=== PATIENT | female | born 1985 | race Caucasian/White ===

== ENCOUNTER 2021-11-09 08:25 | Emergency (ER) | payer MEDICAID, SELFPAY ==
[2021-11-09 08:38] VITALS: BP 131/84; PULSE 100; RESP 20; TEMP 36.8; O2SAT 100
--- NOTE | 2021-11-09 08:54 | ED.URI ---
HPI - URI/Sore Throat General Chief Complaint: Upper Respiratory Infection Stated Complaint: Cough/Fever/Sore Throat Source: patient Mode of arrival: ambulatory Limitations: no limitations History of Present Illness HPI Narrative: 35-year-old female presents to [facility] with complaints of sore throat, chills, fevers, body aches and cough for the past 4 days. Patient reports that she was recently placed to Covid by her parents. Patient is not COVID or influenza vaccinated. Patient denies nausea, vomiting, diarrhea, shortness breath or wheezing. Patient has been taking [id number] ibuprofen with some relief. MD elicited complaint: cough, sore throat and nasal congestion Onset (ago): day(s) (4) Able to tolerate fluids by mouth: Yes Exacerbating factors: nothing Relieving factors: nothing Context: sick contacts Associated symptoms: chills and cough Treatments prior to arrival: none Related Data Home Medications Medication Instructions Recorded Confirmed buspirone 15 mg PO DAILY 11/09/21 11/09/21 quetiapine 50 mg PO HS 11/09/21 11/09/21 Allergies Allergy/AdvReac Type Severity Reaction Status Date / Time No Known Allergies Allergy Unknown Verified 11/09/21 08:43 Review of Systems Constitutional: Constitutional: Reports chills, Denies fatigue, Reports fever(s) and Denies weakness ENT: Reports sore throat Cardiovascular: Cardiovascular: Denies chest pain, Denies rapid heart rate and Denies radiating jaw, neck or arm pain Respiratory: Respiratory: Denies chest congestion, Reports cough, Denies dyspnea and Denies wheezing Gastrointestinal: Gastrointestinal: Denies constipation, Denies diarrhea, Denies nausea and Denies vomiting [facility] Past Medical History Medical History (Updated 11/09/21 @ 09:26 by Mindy Overton APRN) Encounter for gastric sleeve procedure Social History Social History (Updated 11/09/21 @ 08:57 by Mindy Overton APRN) Smoking status: Never smoker Comments At time of signature, I agree with nursing past medical, surgical, social and family history. There is no relevant family history pertinent to the presenting complaint. Exam Const: General: healthy appearing, no acute distress and alert Orientation/consciousness: patient oriented x3 HENMT: Ears: external ears normal and EAC's normal General nose exam: Normal nares present Mouth: Yes lip normal and Yes moist mucous membranes Teeth and gingiva: dentition normal Throat: uvula midline Other: Mild erythema noted to posterior pharynx Neck: Neck: normal visual inspection Resp: Effort & Inspection: normal respiratory effort Auscultation: clear to auscultation bilaterally Cardio: Rate: regular rate Rhythm: regular rhythm Skin: General skin exam: normal color Rashes: no rashes Neuro: General: patient oriented x3, moves all extremities and no meningeal signs Psych: Affect: normal affect Attitude: cooperative Course Vital Signs Vital signs: Vital Signs Temperature 36.8 C 11/09/21 08:38 Pulse Rate 100 11/09/21 08:38 Respiratory Rate 20 11/09/21 08:38 Blood Pressure 131/84 11/09/21 08:38 Pulse Oximetry 100 11/09/21 08:38 Temperature 36.8 C 11/09/21 08:38 Pulse Rate 100 11/09/21 08:38 Respiratory Rate 20 11/09/21 08:38 Blood Pressure 131/84 11/09/21 08:38 Pulse Oximetry 100 11/09/21 08:38 MDM - URI/Sore Throat Lab Data Lab results narrative: Negative rapid COVID Labs: Influenza A Screen Negative Reference Range: Negative Influenza B Screen Negative Reference Range: Negative Strep Screen Presumptive Negative *(Reference Range: Negative)* Critical Care Time Critical Care Time Critical Care Time: No Discharge Plan Discharge Clinical Impression: Viral infection Patient Disposition: [facility]
== END 2021-11-09 09:34 | disposition home or self-care (01) ==
PROVIDERS: Emergency Provider Nurse Practitioner Family
DX: B34.9 Viral infection, unspecified (principal); Z20.822 Contact with and (suspected) exposure to COVID-19; Z98.84 Bariatric surgery status
CPT/HCPCS: 87081; 87426; 87804; 87880; 99203; C9803; G0463

== ENCOUNTER 2023-02-04 08:04 | Emergency (ER) | payer OTHER, MEDICAID, SELFPAY ==
[2023-02-04 08:12] VITALS: BP 114/81; PULSE 78; RESP 20; TEMP 36.7; O2SAT 98
--- NOTE | 2023-02-04 08:35 | ED.URI ---
HPI - URI/Sore Throat General Chief Complaint: Upper Respiratory Infection Stated Complaint: cold/flu Time Seen by Provider: 02/04/23 08:35 History of Present Illness HPI Narrative: Patient here with a sore throat. Patient states her symptoms just started yesterday but she was exposed to strep throat. No trouble swallowing no drooling. Related Data Allergies Allergy/AdvReac Type Severity Reaction Status Date / Time No Known Allergies Allergy Unknown Verified 02/04/23 08:24 Review of Systems Review of Systems: CONSTITUTIONAL: Denies chills, or sweats. Reports fever and generalized body aches EYES: Denies visual changes, redness, or discharge. ENT: Denies otalgia. Reports nasal congestion runny nose and sore throat CARDIOVASCULAR: Denies chest pain, palpitations, or edema. RESPIRATORY: Denies dyspnea. Reports occasional cough GASTROINTESTINAL: Denies abdominal pain, nausea, vomiting, or diarrhea. GENITOURINARY: Denies dysuria or hematuria. SKIN: Denies rash or itching. MUSCULOSKELETAL: Denies back pain, joint pain, or myalgia. Reports generalized body aches NEUROLOGIC: Denies headache, numbness, or weakness. PSYCHIATRIC: Denies anxiety or depression. [facility] Past Medical History Medical History (Updated 02/04/23 @ 08:58 by DEBI Wilder) Encounter for gastric sleeve procedure Social History Social History (Updated 11/09/21 @ 08:57 by Mindy Overton APRN) Smoking status: Never smoker Comments At time of signature, agree with nursing past medical, surgical, social and family history. There is no relevant family history pertinent to the presenting complaint Exam Narrative: CONSTITUTIONAL: Denies chills, or sweats. Reports fever and generalized body aches EYES: Denies visual changes, redness, or discharge. ENT: Denies otalgia. Reports nasal congestion runny nose and sore throat CARDIOVASCULAR: Denies chest pain, palpitations, or edema. RESPIRATORY: Denies dyspnea. Reports occasional cough GASTROINTESTINAL: Denies abdominal pain, nausea, vomiting, or diarrhea. GENITOURINARY: Denies dysuria or hematuria. SKIN: Denies rash or itching. MUSCULOSKELETAL: Denies back pain, joint pain, or myalgia. Reports generalized body aches NEUROLOGIC: Denies headache, numbness, or weakness. PSYCHIATRIC: Denies anxiety or depression. Course Course Level of Care: Express Care Visit Vital Signs Vital signs: Vital Signs Temperature 36.7 C 02/04/23 08:12 Pulse Rate 78 02/04/23 08:12 Respiratory Rate 20 02/04/23 08:12 Blood Pressure 114/81 02/04/23 08:12 Pulse Oximetry 98 02/04/23 08:12 Oxygen Delivery Room Air 02/04/23 08:12 Temperature 36.7 C 02/04/23 08:12 Pulse Rate 78 02/04/23 08:12 Respiratory Rate 20 02/04/23 08:12 Blood Pressure 114/81 02/04/23 08:12 Pulse Oximetry 98 02/04/23 08:12 Oxygen Delivery Room Air 02/04/23 08:12 Discussed with patient to monitor symptoms if symptoms do not improve in 2-3 days return and B swab for influenza and/or COVID. Discussed since her symptoms just started it would not be an accurate swab to test for COVID influenza at this time. MDM - URI/Sore Throat Differential Diagnosis Differential diagnosis: Likely upper respiratory infection, croup, otitis media, sinusitis, viral infection, bronchitis, influenza and pharyngitis Lab Data Attestation: I reviewed the patient's lab results. Labs: Strep Screen Positive Group A Strep *(Reference Range: Negative)* Discharge Plan Discharge Clinical Impression: Pharyngitis, Strep pharyngitis Patient Disposition: Home, Self-Care Condition: Stable Instructions: Pharyngitis (ED), Strep Throat (DC) Additional Instructions: increase fluids especially juices and water [id number] cough and cold medicine of your choice for your symptoms Salt water gargles, throat lozenges or throat sprays as desired change toothbrush in 3-5 day
== END 2023-02-04 08:58 | disposition home or self-care (01) ==
PROVIDERS: Emergency Provider Nurse Practitioner Family
DX: J02.0 Streptococcal pharyngitis (principal); Z98.84 Bariatric surgery status
CPT/HCPCS: 87880; 99213; G0463

== ENCOUNTER 2023-03-03 10:15 | Emergency (ER) | payer OTHER, MEDICAID, SELFPAY ==
[2023-03-03 10:30] VITALS: BP 135/85; PULSE 67; RESP 18; TEMP 37.3; O2SAT 99
--- NOTE | 2023-03-03 10:51 | ED.URI ---
HPI - URI/Sore Throat General Chief Complaint: Upper Respiratory Infection Stated Complaint: strep test Time Seen by Provider: 03/03/23 10:51 History of Present Illness HPI Narrative: 37-year-old female presented for complaint of sore throat since last night. Endorses sick family members with similar symptoms. Patient had strep on 02/04/2023 completed her course of antibiotics. She has not taken anything for symptoms at this time. She denies associated cough, shortness of breath, wheezing, nausea, vomiting, diarrhea, fevers or chills. Related Data Allergies Allergy/AdvReac Type Severity Reaction Status Date / Time No Known Allergies Allergy Unknown Verified 03/03/23 10:52 Review of Systems Review of Systems: CONSTITUTIONAL: Denies body aches, fever, chills, or sweats. EYES: Denies visual changes, redness, or discharge. ENT: Denies rhinorrhea, congestion, or otalgia. CARDIOVASCULAR: Denies chest pain, palpitations, or edema. RESPIRATORY: Denies dyspnea. GASTROINTESTINAL: Denies abdominal pain, nausea, vomiting, or diarrhea. SKIN: Denies rash, itching, or wounds. MUSCULOSKELETAL: Denies back pain, joint pain, or myalgia. NEUROLOGIC: Denies headache PMFSH Past Medical History Medical History Encounter for gastric sleeve procedure Social History Social History Smoking status: Never smoker Exam Narrative: GENERAL: well-appearing, no acute distress. EYES: conjunctivae clear ENT: Mucous membranes moist. TMs pearly mustafa with normal light reflex bilaterally; no tragal tenderness. Oropharynx erythematous without lesions , exudate, or tonsillar swelling. No drooling, no hoarseness, no trismus, uvula midline. No tripod positioning, hot potato voice, or soft palate swelling. NECK: Supple. No lymphadenopathy CHEST: Clear to auscultation, breath sounds equal. No respiratory distress, speaks in full sentences. HEART: Regular rate and rhythm. No murmur heard. SKIN: Warm, dry, no rash. NEURO: Alert and oriented x3. Course Course Emergency Course: Patient is aware of diagnosis, understands and agrees to treatment plan. Anticipatory guidance given. Patient agrees to follow-up as directed and is aware of reasons to seek care at the emergency department. Portions of this record may have been created with voice recognition software Level of Care: Express Care Visit Vital Signs Vital signs: Vital Signs Temperature 99.2 F 03/03/23 10:30 Pulse Rate 67 03/03/23 10:30 Respiratory Rate 18 03/03/23 10:30 Blood Pressure 135/85 03/03/23 10:30 Pulse Oximetry 99 03/03/23 10:30 Oxygen Delivery Room Air 03/03/23 10:30 Temperature 99.2 F 03/03/23 10:30 Pulse Rate 67 03/03/23 10:30 Respiratory Rate 18 03/03/23 10:30 Blood Pressure 135/85 03/03/23 10:30 Pulse Oximetry 99 03/03/23 10:30 Oxygen Delivery Room Air 03/03/23 10:30 MDM - URI/Sore Throat MDM Narrative Medical decision making narrative: strep result reviewed with pt. patient's daughter tested positive for strep at this time, will send antibiotics due to known exposure. Advise supportive treatments. Patient is appropriate for outpatient treatment and follow-up. Differential Diagnosis Differential diagnosis: Likely upper respiratory infection, viral infection and pharyngitis Lab Data Labs: Strep Screen Presumptive Negative *(Reference Range: Negative)* Discharge Plan Discharge Clinical Impression: Pharyngitis Qualifiers: Pharyngitis/tonsillitis etiology: unspecified etiology Qualified Code(s): J02.9 - Acute pharyngitis, unspecified Patient Disposition: Home, Self-Care Condition: Stable Instructions: Antibiotic Form, Pharyngitis (ED) Additional Instructions: - Take the antibiotic as directed. Fever and sore throat typically reso
== END 2023-03-03 11:07 | disposition home or self-care (01) ==
PROVIDERS: Emergency Provider Nurse Practitioner Family
DX: J02.9 Acute pharyngitis, unspecified (principal)
CPT/HCPCS: 87081; 87880; 99213; G0463

== ENCOUNTER 2024-01-22 10:29 | Emergency (ER) | payer OTHER, SELFPAY ==
[2024-01-22 10:38] VITALS: BP 155/83; PULSE 129; RESP 20; TEMP 38.3; O2SAT 100
--- NOTE | 2024-01-22 10:46 | ED.GENADULT ---
HPI - General Adult General Chief complaint: Upper Respiratory Infection Stated complaint: Fever/Sore Throat/Body Aches Source: patient, RN notes reviewed and old records reviewed Mode of arrival: ambulatory Limitations: no limitations History of Present Illness HPI narrative: 38-year-old female presents to [facility] with complaints of cough, congestion, sore throat, myalgia, fever, chills this started this a.m.. Patient states has been exposed to strep and COVID. Related Data Allergies Allergy/AdvReac Type Severity Reaction Status Date / Time No Known Allergies Allergy Unknown Verified 03/03/23 10:52 Review of Systems Constitutional: Constitutional: Reports no additional constitutional complaints, Reports body ache(s), Reports chills, Denies fatigue, Reports fever(s) and Denies headache(s) Eyes: Eyes: Reports no additional eye complaints and Denies blurry vision ENT: Reports system reviewed and no additional complaints, except as documented, Denies vertigo, Denies dizziness, Denies ear discharge, Denies otalgia, Denies facial pain, Denies headache(s), Denies nasal congestion, Reports nasal discharge, Denies sinus pain, Denies sinus pressure and Reports sore throat Cardiovascular: Cardiovascular: Reports no additional cardiovascular complaints, Denies chest pain, Denies chest pain at rest, Denies rapid heart rate and Denies dyspnea Respiratory: Respiratory: Reports no additional respiratory complaints, Denies chest congestion, Reports cough, Denies pain on inspiration, Denies pain with cough and Denies dyspnea Gastrointestinal: Gastrointestinal: Denies abdominal pain, Denies diarrhea, Denies nausea and Denies vomiting Integumentary/Breasts: Skin/Breast: Denies rash Neurologic: Reports system reviewed and no additional complaints, except as documented, Denies vertigo, Denies dizziness and Denies headache(s) Endocrine: Endocrine: Denies fatigue PMF Past Medical History Medical History Encounter for gastric sleeve procedure Social History Social History Smoking status: Never smoker Comments At the time of my signature, I reviewed and agree with the nursing past medical, surgical, social, and family history. There is no relevant family history pertinent to the patient complaint. Exam Const: General: cooperative, healthy appearing, no acute distress and well nourished Nutritional Appearance: well nourished Orientation/consciousness: patient oriented x3 Limitations: no limitations HENMT: Head: normal to inspection and normocephalic Ears: external ears normal, TM's normal bilaterally, EAC's normal and mastoids normal Face/Nose/Sinus: normal facial exam Face and sinus: normal facial exam Mouth: Yes Normal oral and palatal mucosa present, Yes oropharynx normal and Yes moist mucous membranes Throat: posterior oropharynx normal, tonsils normal, uvula midline, abnormal tonsil, no peritonsillar masses, normal posterior oropharynx, postnasal drainage and no uvular edema Eyes: General: appearance normal, both eyes and all related structures Sclera: sclerae normal Pupils: Equal, round and reactive pupils present Resp: Effort & Inspection: normal respiratory effort, able to speak in complete sentences, no audible wheezes, no cough, no respiratory distress and no retractions Auscultation: clear to auscultation bilaterally, no crackles, no rales, no rhonchi and no wheezes Cardio: Rate: regular rate Rhythm: regular rhythm Skin: General skin exam: normal color and no rashes or lesions noted Neuro: General: patient oriented x3 Cranial nerves: Yes Equal, round and reactive pupils present Psych: Appearance: grossly normal Mental Status: mental status grossly normal Speech and movement: Normal speech and movement present Affect: normal affect Course Course Emergency Course: Patient is aware of diagnosis, under
== END 2024-01-22 11:09 | disposition home or self-care (01) ==
PROVIDERS: Emergency Provider Registered Nurse
DX: B34.9 Viral infection, unspecified (principal); Z20.822 Contact with and (suspected) exposure to COVID-19
CPT/HCPCS: 87081; 87426; 87804; 87880; 99213; G0463

== ENCOUNTER 2024-03-04 08:14 | Emergency (ER) | payer OTHER, SELFPAY ==
[2024-03-04 08:22] VITALS: BP 130/89; PULSE 71; RESP 20; TEMP 36.9; O2SAT 100
--- NOTE | 2024-03-04 08:26 | ED.FEMALEGU ---
HPI - Female Genitourinary General Chief complaint: Urogenital-Female Stated complaint: Urinary Problem Time Seen by Provider: 03/04/24 08:36 Source: patient, RN notes reviewed and old records reviewed Mode of arrival: ambulatory Limitations: no limitations History of Present Illness HPI Narrative: 38 year old female who presents to [facility] care with complaints of 2 to 3 day history of urinary urgency, frequency denies burning with urination. Reports that she has no suprapubic or any CVA. tenderness, denies any fever, nausea or vomiting. Patient reports no vaginal discharge, states no concern for STD exposure. MD elicited complaint: UTI Onset (ago): day(s) (3) Vaginal discharge: none Vaginal bleeding: none Treatment prior to arrival: none Related Data Allergies Allergy/AdvReac Type Severity Reaction Status Date / Time No Known Allergies Allergy Unknown Verified 03/03/23 10:52 Review of Systems Review of Systems: CONSTITUTIONAL: Denies fever, chills, or sweats. CARDIOVASCULAR: Denies chest pain, palpitations, or edema. RESPIRATORY: Denies cough or dyspnea. GASTROINTESTINAL: Denies abdominal pain, nausea, vomiting, or diarrhea. GENITOURINARY: Reports no dysuria,positive for frequency, urgency. Denies flank pain or hematuria. SKIN: Denies rash or itching. MUSCULOSKELETAL: Denies back pain or myalgia. Denies CVA tenderness NEUROLOGIC: Denies headache All systems reviewed & are unremarkable except as noted in HPI and below PMFSH Past Medical History Medical History Encounter for gastric sleeve procedure Surgical History Surgical History History of dilatation and curettage History of tonsillectomy and adenoidectomy Social History Social History Smoking status: Never smoker Alcohol intake: never Substance use: never Living arrangements: with family Gender identity (if verbalized by the patient): Female Comments At time of signature, agree with nursing past medical, surgical, social and family history. There is no relevant family history pertinent to the presenting complaint Exam Narrative: GENERAL: Well-appearing, well-nourished, and in no acute distress. HEAD: Normocephalic, atraumatic. NECK: Supple. no lymphadenopathy CHEST: Clear to auscultation. No respiratory distress. SAO2 100% on room air HEART: Regular rate and rhythm. No murmur heard. Normal peripheral pulses. ABDOMEN: Soft, nontender, nondistended, normal active bowel sounds. No CVA tenderness, denies any burning with urination states frequency and urgency with urination, no fever EXTREMITIES: Normal range of motion. No edema. SKIN: Warm, dry, no rash. NEURO: No focal deficits. Alert and oriented x3. Course Course Emergency Course: Patient is aware of diagnosis, understands and agrees to treatment plan.? Anticipatory guidance given.? Patient agrees to follow-up as directed and is aware of reasons to seek care at the emergency department. Portions of this record may have been created with voice recognition software Level of Care: Express Care Visit Vital Signs Vital signs: Vital Signs Temperature 36.9 C 03/04/24 08:22 Pulse Rate 71 03/04/24 08:22 Respiratory Rate 20 03/04/24 08:22 Blood Pressure 130/89 03/04/24 08:22 Pulse Oximetry 100 03/04/24 08:22 Oxygen Delivery Room Air 03/04/24 08:22 Temperature 36.9 C 03/04/24 08:22 Pulse Rate 71 03/04/24 08:22 Respiratory Rate 20 03/04/24 08:22 Blood Pressure 130/89 03/04/24 08:22 Pulse Oximetry 100 03/04/24 08:22 Oxygen Delivery Room Air 03/04/24 08:22 reviewed MDM - Female Genitourinary MDM Narrative Medical decision making narrative: Exam findings and UA show no acute concerns or changes; patient is non-toxic appearing and is in no distress.? Patient is appropriate for
== END 2024-03-04 09:04 | disposition home or self-care (01) ==
PROVIDERS: Emergency Provider Registered Nurse
DX: N39.0 Urinary tract infection, site not specified (principal); B96.20 Unspecified Escherichia coli [E. coli] as the cause of diseases classified elsewhere; Z98.84 Bariatric surgery status
CPT/HCPCS: 81003; 87077; 87086; 87186; 99213; G0463

== ENCOUNTER 2024-04-05 17:00 | Emergency (ER) | payer OTHER, SELFPAY ==
[2024-04-05 17:26] VITALS: BP 146/79; PULSE 85; RESP 18; TEMP 36.7; O2SAT 100
--- NOTE | 2024-04-05 17:33 | ED.FEMALEGU ---
HPI - Female Genitourinary General Chief complaint: Urogenital-Female Stated complaint: Poss UTI Time Seen by Provider: 04/05/24 17:33 Source: patient, family and RN notes reviewed Mode of arrival: ambulatory Limitations: no limitations History of Present Illness HPI Narrative: 38 year old female who presents to [facility] care with complaints of urinary urgency this morning and pain at the end of urination,with some urinary frequency. Patient reports that she has not had any fevers,chills or sweats, denies any nausea vomiting or diarrhea. Patient reports no vaginal discharge and no concern for any exposure to STD's. MD elicited complaint: UTI Onset (ago): day(s) (today) Location of symptoms: perineum Severity: mild Treatment prior to arrival: none Related Data Allergies Allergy/AdvReac Type Severity Reaction Status Date / Time No Known Allergies Allergy Unknown Verified 04/05/24 17:37 Review of Systems Review of Systems: CONSTITUTIONAL: Denies fever, chills, or sweats. CARDIOVASCULAR: Denies chest pain, palpitations, or edema. RESPIRATORY: Denies cough or dyspnea. GASTROINTESTINAL: Denies abdominal pain, nausea, vomiting, or diarrhea. GENITOURINARY: Reports dysuria, frequency, urgency. Denies flank pain or visible hematuria. SKIN: Denies rash or itching. MUSCULOSKELETAL: Denies back pain or myalgia. Denies CVA tenderness NEUROLOGIC: Denies headache All systems reviewed & are unremarkable except as noted in HPI and below PMFSH Past Medical History Medical History Encounter for gastric sleeve procedure Surgical History Surgical History History of dilatation and curettage History of tonsillectomy and adenoidectomy Social History Social History Smoking status: Never smoker Alcohol intake: never Substance use: never Living arrangements: with family Gender identity (if verbalized by the patient): Female Comments At time of signature, agree with nursing past medical, surgical, social and family history. There is no relevant family history pertinent to the presenting complaint Exam Narrative: GENERAL: Well-appearing, well-nourished, and in no acute distress. HEAD: Normocephalic, atraumatic. NECK: Supple.no lymphadenopathy CHEST: Clear to auscultation. No respiratory distress.SAO2 100% on room air HEART: Regular rate and rhythm. No murmur heard. Normal peripheral pulses. ABDOMEN: Soft, nontender, nondistended, normal active bowel sounds. No CVA tendernesspositive for pain at end of voiding and urinary urgency EXTREMITIES: Normal range of motion. No edema. SKIN: Warm, dry, no rash. NEURO: No focal deficits. Alert and oriented x3. Course Course Emergency Course: Patient is aware of diagnosis, understands and agrees to treatment plan.? Anticipatory guidance given.? Patient agrees to follow-up as directed and is aware of reasons to seek care at the emergency department. Portions of this record may have been created with voice recognition software Level of Care: Express Care Visit Vital Signs Vital signs: Vital Signs Temperature 36.7 C 04/05/24 17:26 Pulse Rate 85 04/05/24 17:26 Respiratory Rate 18 04/05/24 17:26 Blood Pressure 146/79 H 04/05/24 17:26 Pulse Oximetry 100 04/05/24 17:26 Oxygen Delivery Room Air 04/05/24 17:26 Temperature 36.7 C 04/05/24 17:26 Pulse Rate 85 04/05/24 17:26 Respiratory Rate 18 04/05/24 17:26 Blood Pressure 146/79 H 04/05/24 17:26 Pulse Oximetry 100 04/05/24 17:26 Oxygen Delivery Room Air 04/05/24 17:26 MDM - Female Genitourinary MDM Narrative Medical decision making narrative: Exam findings and UA show no acute concerns or changes; patient is non-toxic appearing and is in no distress.? Patient is appropriate for outpatient treatment and follow-up. Diffe
== END 2024-04-05 18:06 | disposition home or self-care (01) ==
PROVIDERS: Emergency Provider Registered Nurse
DX: N39.0 Urinary tract infection, site not specified (principal)
CPT/HCPCS: 81003; 87077; 87086; 87088; 87186; 99213; G0463

== ENCOUNTER 2024-07-05 08:23 | Emergency (ER) | payer OTHER, SELFPAY ==
[2024-07-05 08:31] VITALS: BP 130/86; PULSE 77; RESP 16; TEMP 36.5; O2SAT 100
--- NOTE | 2024-07-05 08:33 | ED.SKABFB ---
HPI - Skin/Abscess/Foreign Bdy General Chief complaint: Skin/Abscess/Foreign Body Stated complaint: Skin Sore Time Seen by Provider: 07/05/24 08:33 Source: patient Mode of arrival: ambulatory Limitations: no limitations History of Present Illness HPI narrative: 38 y/o female presented for c/o wound to the left breast. First noticed about one week ago. At onset she had burning/pain and some drainage. Applied hydrogen peroxide and neosporin. States site appears to be improving, denies further burning or pain to the site. Says the skin around the wound is flaking. denies any other skin concerns. Related Data Allergies Allergy/AdvReac Type Severity Reaction Status Date / Time No Known Allergies Allergy Unknown Verified 04/05/24 17:37 Review of Systems Review of Systems: CONSTITUTIONAL: Denies body aches, fever, chills, or sweats. CARDIOVASCULAR: Denies chest pain, palpitations, or edema. RESPIRATORY: Denies cough or dyspnea. SKIN: reports skin wound left breast MUSCULOSKELETAL: Denies back pain, joint pain, or myalgia. NEUROLOGIC: Denies headache, numbness, tingling, or weakness. [facility] Past Medical History Medical History Encounter for gastric sleeve procedure Surgical History Surgical History History of dilatation and curettage History of tonsillectomy and adenoidectomy Social History Social History Smoking status: Never smoker Alcohol intake: never Substance use: never Living arrangements: with family Gender identity (if verbalized by the patient): Female Comments At time of signature, I have reviewed and agree with nursing past medical, surgical, social and family history unless otherwise noted. Please see nursing chart for further information. There is no relevant family history pertinent to the presenting complaint Exam Narrative: GENERAL: Well-appearing ENT: Mucous membranes moist. Oropharynx without edema, erythema or lesions. CHEST: Clear to auscultation. HEART: Regular rate and rhythm. SKIN: Warm, dry. Left lateral breast with 1cm area of erythema, nontender, no fluctuance or drainage; surrounding skin is light brown in color of 7cm diameter with flaking noted. NEURO: Alert and oriented x3. Course Course Emergency Course: Patient is aware of diagnosis, understands and agrees to treatment plan. Anticipatory guidance given. Patient agrees to follow-up as directed and is aware of reasons to seek care at the emergency department. Portions of this record may have been created with voice recognition software Level of Care: Express Care Visit Vital Signs Vital signs: Vital Signs Temperature 97.7 F 07/05/24 08:31 Pulse Rate 77 07/05/24 08:31 Respiratory Rate 16 07/05/24 08:31 Blood Pressure 130/86 07/05/24 08:31 Pulse Oximetry 100 07/05/24 08:31 Oxygen Delivery Room Air 07/05/24 08:31 Temperature 97.7 F 07/05/24 08:31 Pulse Rate 77 07/05/24 08:31 Respiratory Rate 16 07/05/24 08:31 Blood Pressure 130/86 07/05/24 08:31 Pulse Oximetry 100 07/05/24 08:31 Oxygen Delivery Room Air 07/05/24 08:31 Reviewed MDM - Skin/Abscess/Foreign Bdy MDM Narrative Medical decision making narrative: Discussed physical exam findings. Advised supportive measures and signs/symptoms to go to the ER. Pt is appropriate for outpt treatment and f/u. Differential Diagnosis Differential diagnosis: Likely abscess of skin or subcutaneous tissue, urticaria, herpes zoster, cellulitis and contact dermatitis Discharge Plan Discharge Clinical Impression: Cellulitis Patient Disposition: Home, Self-Care Condition: Stable Instructions: Antibiotic Form, Cellulitis (ED) Additional Instructions: You may shower and Cleanse with warm soapy water Warm compresses at least 4 times a day t
== END 2024-07-05 08:46 | disposition home or self-care (01) ==
PROVIDERS: Emergency Provider Nurse Practitioner Family
DX: N61.0 Mastitis without abscess (principal)
CPT/HCPCS: 99213; G0463

== ENCOUNTER 2024-07-20 09:04 | Emergency (ER) | payer OTHER, SELFPAY ==
[2024-07-20 09:08] VITALS: BP 110/81; PULSE 69; RESP 20; TEMP 36.5; O2SAT 100
--- NOTE | 2024-07-20 09:21 | ED.FEMALEGU ---
HPI - Female Genitourinary General Chief complaint: Urogenital-Female Stated complaint: Poss UTI Time Seen by Provider: 07/20/24 09:20 Source: patient, RN notes reviewed and old records reviewed Mode of arrival: ambulatory Limitations: no limitations History of Present Illness HPI Narrative: 38 year old female who presents to express care presents to express care with complaints of burning with urination, urinary frequency, urgency and voiding small amounts for the past 3 days. Patient reports some suprapubic pressure, denies any fevers, chills or sweats or any nausea or vomiting. Patient reports no vaginal discharge or any itching MD elicited complaint: UTI Onset (ago): day(s) (3) Severity scale (1-10): 4 Vaginal discharge: none Vaginal bleeding: none Urinary symptoms: Dysuria, Urgency and Frequency Related Data Allergies Allergy/AdvReac Type Severity Reaction Status Date / Time No Known Allergies Allergy Unknown Verified 07/20/24 09:30 Review of Systems Review of Systems: CONSTITUTIONAL: Denies fever, chills, or sweats. CARDIOVASCULAR: Denies chest pain, palpitations, or edema. RESPIRATORY: Denies cough or dyspnea. GASTROINTESTINAL reports suprapubic abdominal pain, no nausea, vomiting, or diarrhea. GENITOURINARY: Reports dysuria, frequency, urgency and voiding in small amounts. Denies flank pain or hematuria. SKIN: Denies rash or itching. MUSCULOSKELETAL: Denies back pain or myalgia. Denies CVA tenderness NEUROLOGIC: Denies headache All systems reviewed & are unremarkable except as noted in HPI and below PMFSH Past Medical History Medical History Encounter for gastric sleeve procedure Urinary tract infection Surgical History Surgical History History of dilatation and curettage History of tonsillectomy and adenoidectomy Social History Social History Smoking status: Never smoker Alcohol intake: never Substance use: never Living arrangements: with family Gender identity (if verbalized by the patient): Female Comments At time of signature, agree with nursing past medical, surgical, social and family history. There is no relevant family history pertinent to the presenting complaint Exam Narrative: GENERAL: Well-appearing, well-nourished, and in no acute distress. HEAD: Normocephalic, atraumatic. NECK: Supple.no lymphadenopathy CHEST: Clear to auscultation. No respiratory distress.SAO2 100% on room air HEART: Regular rate and rhythm. No murmur heard. Normal peripheral pulses. ABDOMEN: Soft, nontender, nondistended, normal active bowel sounds. No CVA tenderness EXTREMITIES: Normal range of motion. No edema. SKIN: Warm, dry, no rash. NEURO: No focal deficits. Alert and oriented x3. Course Course Emergency Course: Patient is aware of diagnosis, understands and agrees to treatment plan.? Anticipatory guidance given.? Patient agrees to follow-up as directed and is aware of reasons to seek care at the emergency department. Portions of this record may have been created with voice recognition software Level of Care: Express Care Visit Vital Signs Vital signs: Vital Signs Temperature 36.5 C 07/20/24 09:08 Pulse Rate 69 07/20/24 09:08 Respiratory Rate 20 07/20/24 09:08 Blood Pressure 110/81 07/20/24 09:08 Pulse Oximetry 100 07/20/24 09:08 Oxygen Delivery Room Air 07/20/24 09:08 Temperature 36.5 C 07/20/24 09:08 Pulse Rate 69 07/20/24 09:08 Respiratory Rate 20 07/20/24 09:08 Blood Pressure 110/81 07/20/24 09:08 Pulse Oximetry 100 07/20/24 09:08 Oxygen Delivery Room Air 07/20/24 09:08 MDM - Female Genitourinary MDM Narrative Medical decision making narrative: Exam findings and UA show no acute concerns or changes; patient is non-toxic appearing and is in no distress.? Patient is
[2024-07-20 09:54] LABS: EDUAAPPEAR Cloudy; EDUABILI Negative; EDUABLOOD 1+; EDUACOLOR1 Yellow; EDUAGLUCOSE Negative; EDUAKETONE Negative; EDUALEUKO 1+; EDUANITRATE Negative; EDUAPROTEIN Trace; EDUASPGRAVITY 1.025; EDUAUROBILI 0.2
== END 2024-07-20 09:35 | disposition home or self-care (01) ==
PROVIDERS: Emergency Provider Registered Nurse
DX: N39.0 Urinary tract infection, site not specified (principal)
CPT/HCPCS: 81003; 87077; 87086; 87088; 87186; 99213; G0463